=== PATIENT | male | born 1950 | race Caucasian/White ===

== ENCOUNTER 2017-07-05 10:48 | Emergency (ER) | payer MEDICARE ==
[~2017-07-05] VITALS: Ht 177.8 cm; Wt 118.0 kg
[2017-07-05 10:58] VITALS: BP 150/73; PULSE 66; RESP 18; TEMP 97.8
--- NOTE | 2017-07-05 11:25 | RADRPT ---
EXAM DATE/TIME: 07/05/2017 11:16 [facility] COMPARISON: No previous studies available for comparison. INDICATIONS : Chest pain. MEDICAL HISTORY : Hypertension. SURGICAL HISTORY : None. ENCOUNTER: Initial ACUITY: 1 day PAIN SCORE: 3/10 LOCATION: Bilateral chest FINDINGS: A single view of the chest demonstrates the lungs to be symmetrically aerated without evidence of mas s, infiltrate or effusion. The cardiomediastinal contours are unremarkable. Osseous structures are intact. CONCLUSION: No acute disease. Castillo Craig MD FACR on July 05, 2017 at 11:23 Board Certified Radiologist. This report was verified electronically.
[2017-07-05 11:26] VITALS: BP 138/86; PULSE 67; O2SAT 96
[2017-07-05] MEDS ORDERED: OMEP20TA93 PO (11:33)
[2017-07-05] MEDS ORDERED: TELM1TAB PO (11:33)
[2017-07-05] MEDS ORDERED: ASPI-516 CHEW (11:33)
[2017-07-05] MEDS ORDERED: HYDR25TA5 PO (11:33)
[2017-07-05] MEDS ORDERED: SIMV20TA PO (11:33)
[2017-07-05] MEDS ORDERED: SODIUM CHLOR 0.9% 1000 ML INJ 1,000 ML IV ONE (11:36)
[2017-07-05] MEDS ORDERED: SODIUM CHLORIDE 0.9% FLUSH 10 ML FLUSH IVF PRN (11:45)
[2017-07-05] MEDS ORDERED: MECLIZINE HCL 25 MG TAB PO ONE (11:45)
[2017-07-05 11:56] LABS: AUTOMATED NEUTROPHIL # 4.6 TH/MM3 (1.8-7.7); BASOPHIL % 0.4 % (0.0-2.0); EOSINOPHIL # 0.2 TH/MM3 (0-0.4); EOSINOPHIL % 2.7 % (0.0-4.0); HEMATOCRIT 42.2 % (39.0-51.0); LYMPH % 27.2 % (9.0-44.0); LYMPHOCYTE # 2.1 TH/MM3 (1.0-4.8); MEAN CELL VOLUME 87.6 FL (80.0-100.0); MEAN CORPUSCULAR HEMOGLOBIN 31.2 PG (27.0-34.0); MEAN CORPUSCULAR HGB CONC 35.6 % (32.0-36.0); MEAN PLATELET VOLUME 7.9 FL (7.0-11.0); MONO % 10.8 % (0.0-8.0); MONOCYTE # 0.8 TH/MM3 (0-0.9); NEUT % 58.9 % (16.0-70.0); PLATELET COUNT 196 TH/MM3 (150-450); RED BLOOD COUNT 4.81 MIL/MM3 (4.50-5.90); WHITE BLOOD COUNT 7.8 TH/MM3 (4.0-11.0)
[2017-07-05 12:08] LABS: INTERNATIONAL NORMALIZED RATIO 1.1 RATIO; PROTHROMBIN TIME - PATIENT 10.9 SEC (9.8-11.6)
--- NOTE | 2017-07-05 12:16 | PD ---
HPI Chief Complaint: Cardiac Complaint Time Seen by Provider: 11:14 Travel History International Travel<30 days: No Contact w/Intl Traveler<30days: No Traveled to known affect area: No History of Present Illness HPI The patient is a 66-year-old male who presents to the emergency department for dizziness. The patient states he developed dizziness yesterday while he was riding motorcycles with his friends. The patient had no dizziness when sitting, however, with stand and walk and suddenly became dizzy. He felt like he was going to fall over. He states he had difficulty walking in a straight line and sitting down. The patient's symptoms do slightly improved while at rest, he does not feel like he is going to fall over while sitting down , however, soon as he stands up he feels off balance. He denies any room spinning quality to the dizziness. He denies any new tinnitus, does have a history of chronic tinnitus. He denies any acute hearing changes, muffled hearing, or drainage from the EACs. He does complain of mild nausea without any vomiting. He denies any other focal deficits. The patient does have a history of hypertension and hyperlipidemia. He denies any history of tobacco use or diabetes. He denies any previous history of [place], CVA, or TIA. PFSH Past Medical History High Cholesterol: Yes GERD: Yes Hypertension: Yes ?: Not Past Surgical History Narrative Surgical Surgery for sleep apnea, abdominal hernia surgery Social History Alcohol Use: No Tobacco Use: No Substance Use: No Allergies-Medications (Allergen,Severity, Reaction): Coded Allergies: Penicillins (Verified Allergy, Severe, Anaphylaxis, 07/05/17) Reported Meds & Prescriptions Reported Meds & Active Scripts Active Reported Aspirin 81 Mg Chew 81 Mg CHEW DAILY Telmisartan 40 Mg Tab 40 Mg PO DAILY Hydrochlorothiazide 25 Mg Tab 25 Mg PO DAILY Simvastatin 20 Mg Tab 20 Mg PO DAILY Omeprazole 20 Mg Tab 20 Mg PO DAILY Review of Systems Except as stated in HPI: all other systems reviewed are Neg General / Constitutional: No: Fever Eyes: No: Blurred Vision HENT: Positive: Lightheadedness, No: Headaches, Vertigo, Ear Discharge, Earache Cardiovascular: No: Chest Pain or Discomfort, Syncope Respiratory: No: Shortness of Breath Gastrointestinal: Positive: Nausea, No: Vomiting, Abdominal Pain Musculoskeletal: No: Weakness Neurologic: Positive: Dizziness, No: Change in Mentation Physical Exam Narrative GENERAL: Awake, alert, pleasant 66-year-old male who appears his stated age and is in no acute respiratory distress. SKIN: Focused skin assessment warm/dry. HEAD: Atraumatic. Normocephalic. EYES: Pupils equal and round. No nystagmus noted. EOMs are intact. ENT: No nasal bleeding or discharge. Mucous membranes pink and moist. NECK: Trachea midline. No JVD. CARDIOVASCULAR: Regular rate and rhythm. No murmur appreciated. RESPIRATORY: No accessory muscle use. Clear to auscultation. Breath sounds equal bilaterally. GASTROINTESTINAL: Abdomen soft, non-tender, nondistended. Hepatic and splenic margins not palpable. MUSCULOSKELETAL: No obvious deformities. No clubbing. No cyanosis. No edema. NEUROLOGICAL: Awake and alert. No obvious cranial nerve deficits. Motor grossly within normal limits. Normal speech. Nonfocal. Oriented 4. No drift of the upper or lower extremities. Finger to nose is normal. Heel to ortiz is normal. No dysarthria. However, when ambulatory the patient is ataxic, able to ambulate but slightly off balance. PSYCHIATRIC: Appropriate mood and affect; insight and judgment normal. Data Data Last Documented VS Vital Signs Date Time Temp Pulse Resp B/P (MAP) Pulse Ox O2 Delivery O2 Flow Rate FiO2 07/05/17 11:30 96 Room Air 07/05/17 11:26 67 138/86 (103) 07/05/17 10:58 97.8 18 Orders Orders Electrocardiogram (07/05/17 11:10) Complete Blood Count With Diff (07/05/17 11:10) Chest, Single Ap (07/05/17 11:10) Iv Access Insert/Monitor (07/05/17 11:10) Ecg Monitoring (07/05/17 11:10) Oxygen Administration (07/05/17 11:10) Oximetry (07/05/17 11:10) Electrocardiogram (07/05/17 11:36) Comprehensive Metabolic Panel (07/05/17 11:36) Magnesium (Mg) (07/05/17 11:36) Ckmb (Isoenzyme) Profile (07/05/17 11:36) Troponin I (07/05/17 11:36) Act Partial Throm Time (Ptt) (07/05/17 11:36) Prothrombin Time / Inr (Pt) (07/05/17 11:36) Meclizine (Antivert) (07/05/17 11:45) Sodium Chloride 0.9% Flush (Ns Flush) (07/05/17 11:45) Sodium Chlor 0.9% 1000 Ml Inj (Ns 1000 M (07/05/17 11:36) Mri Brain W/O Contrast (07/05/17 ) CKMB (07/05/17 11:40) CKMB% (07/05/17 11:40) Labs Laboratory Tests Test 07/05/17 11:40 White Blood Count 7.8 TH/MM3 Red Blood Count 4.81 MIL/MM3 Hemoglobin 15.0 GM/DL Hematocrit 42.2 % Mean Corpuscular Volume 87.6 FL Mean Corpuscular Hemoglobin 31.2 PG Mean Corpuscular Hemoglobin Concent 35.6 % Red Cell Distribution Width 14.0 % Platelet Count 196 TH/MM3 Mean Platelet Volume 7.9 FL Neutrophils (%) (Auto) 58.9 % Lymphocytes (%) (Auto) 27.2 % Monocytes (%) (Auto) 10.8 % Eosinophils (%) (Auto) 2.7 % Basophils (%) (Auto) 0.4 % Neutrophils # (Auto) 4.6 TH/MM3 Lymphocytes # (Auto) 2.1 TH/MM3 Monocytes # (Auto) 0.8 TH/MM3 Eosinophils # (Auto) 0.2 TH/MM3 Basophils # (Auto) 0.0 TH/MM3 CBC Comment DIFF FINAL Differential Comment Prothrombin Time 10.9 SEC Prothromb Time International Ratio 1.1 RATIO Activated Partial Thromboplast Time 24.5 SEC Blood Urea Nitrogen 14 MG/DL Creatinine 1.05 MG/DL Random Glucose 112 MG/DL Total Protein 7.1 GM/DL Albumin 3.6 GM/DL Calcium Level 8.8 MG/DL Magnesium Level 1.8 MG/DL Alkaline Phosphatase 78 U/L Aspartate Amino Transf (AST/SGOT) 35 U/L Alanine Aminotransferase (ALT/SGPT) 55 U/L Total Bilirubin 0.5 MG/DL Sodium Level 140 MEQ/L Potassium Level 4.1 MEQ/L Chloride Level 105 MEQ/L Carbon Dioxide Level 26.9 MEQ/L Anion Gap 8 MEQ/L Estimat Glomerular Filtration Rate 71 ML/MIN Total Creatine Kinase 161 U/L Creatine Kinase MB 3.0 NG/ML Troponin I LESS THAN 0.02 NG/ML MDM Medical Decision Making Medical Screen Exam Complete: Yes Emergency Medical Condition: Yes Medical Record Reviewed: Yes Interpretation(s) EKG reveals normal sinus rhythm with a rate of 65. Low QRS voltage precordial leads. Last Impressions Chest X-Ray 07/05/17 1110 Signed Impressions: Service Date/Time: Wednesday, July 05, 2017 11:16 - CONCLUSION: No acute disease. Castillo Craig MD FACR Brain MRI 07/05/17 0000 Signed Impressions: Service Date/Time: Wednesday, July 05, 2017 12:28 - CONCLUSION: Moderate periventricular matter changes. Negative for acute ischemic event. There is no evidence for CP angle tumor. There is no mastoid disease. Castillo Craig MD FACR Laboratory Tests Test 07/05/17 11:40 White Blood Count 7.8 TH/MM3 Red Blood Count 4.81 MIL/MM3 Hemoglobin 15.0 GM/DL Hematocrit 42.2 % Mean Corpuscular Volume 87.6 FL Mean Corpuscular Hemoglobin 31.2 PG Mean Corpuscular Hemoglobin Concent 35.6 % Red Cell Distribution Width 14.0 % Platelet Count 196 TH/MM3 Mean Platelet Volume 7.9 FL Neutrophils (%) (Auto) 58.9 % Lymphocytes (%) (Auto) 27.2 % Monocytes (%) (Auto) 10.8 % Eosinophils (%) (Auto) 2.7 % Basophils (%) (Auto) 0.4 % Neutrophils # (Auto) 4.6 TH/MM3 Lymphocytes # (Auto) 2.1 TH/MM3 Monocytes # (Auto) 0.8 TH/MM3 Eosinophils # (Auto) 0.2 TH/MM3 Basophils # (Auto) 0.0 TH/MM3 CBC Comment DIFF FINAL Differential Comment Prothrombin Time 10.9 SEC Prothromb Time International Ratio 1.1 RATIO Activated Partial Thromboplast Time 24.5 SEC Blood Urea Nitrogen 14 MG/DL Creatinine 1.05 MG/DL Random Glucose 112 MG/DL Total Protein 7.1 GM/DL Albumin 3.6 GM/DL Calcium Level 8.8 MG/DL Magnesium Level 1.8 MG/DL Alkaline Phosphatase 78 U/L Aspartate Amino Transf (AST/SGOT) 35 U/L Alanine Aminotransferase (ALT/SGPT) 55 U/L Total Bilirubin 0.5 MG/DL Sodium Level 140 MEQ/L Potassium Level 4.1 MEQ/L Chloride Level 105 MEQ/L Carbon Dioxide Level 26.9 MEQ/L Anion Gap 8 MEQ/L Estimat Glomerular Filtration Rate 71 ML/MIN Total Creatine Kinase 161 U/L Creatine Kinase MB 3.0 NG/ML Troponin I LESS THAN 0.02 NG/ML Differential Diagnosis Differential diagnosis includes CVA, TIA, peripheral vertigo, labyrinthitis, M nire's disease, vestibular cochlear tumor, hyponatremia, hypokalemia, hypocalcemia, intracranial hemorrhage. Narrative Course IV was established, labs are drawn and sent, the patient was placed on cardiac telemetry monitoring and continuous pulse oximetry monitoring. MRI of the brain was ordered to evaluate for possible cerebellar CVA. Labs are unremarkable. Chest x-ray unremarkable. MRI of the brain reveals chronic periventricular white matter changes, no acute ischemic event or tumor noted. I had a discussion with the patient regarding 23 hour observation versus outpatient follow-up. Patient would prefer outpatient follow-up, I believe this is reasonable. I did advise him no driving or operating heavy machinery while dizzy. His symptoms are intermittent, may be in her ear related such as labyrinthitis. He is advised to follow-up with neurology and/or ENT if symptoms persist. He will be provided a copy of his blood work and MRI at discharge. Diagnosis Primary Impression: Dizziness Patient Instructions: General Instructions Additional Instructions: Please provide the patient a copy of his lab results and MRI results at discharge. Follow-up with ENT or neurology if symptoms worsen or progress. Return if symptoms worsen or progress. No driving or operating heavy machinery while symptomatic. Med/Other Pt SpecificInfo: No Change to Meds Disposition: 01 DISCHARGE HOME Condition: Stable Sunny Ramon MD Jul 05, 2017 12:16
[2017-07-05 12:34] LABS: ALBUMIN 3.6 GM/DL (3.4-5.0); ALKALINE PHOSPHATASE 78 U/L (45-117); ALT (GPT) 55 U/L (12-78); AST (GOT) 35 U/L (15-37); BICARBONATE 26.9 MEQ/L (21.0-32.0); CALCIUM 8.8 MG/DL (8.5-10.1); CHLORIDE 105 MEQ/L (98-107); CREATININE 1.05 MG/DL (0.60-1.30); GLOMERULAR FILTRATION RATE 71 ML/MIN (>89); GLUCOSE,RANDOM 112 MG/DL (74-106); MAGNESIUM 1.8 MG/DL (1.5-2.5); SODIUM (NA) 140 MEQ/L (136-145); TOTAL BILIRUBIN ADULT 0.5 MG/DL (0.2-1.0); TOTAL PROTEIN 7.1 GM/DL (6.4-8.2); TROPONIN I LESS THAN 0.02 NG/ML (0.02-0.05)
[2017-07-05 12:37] LABS: BLOOD UREA NITROGEN 14 MG/DL (7-18)
--- NOTE | 2017-07-05 12:46 | RADRPT ---
EXAM DATE/TIME: 07/05/2017 12:28 [facility] COMPARISON: No previous studies available for comparison. INDICATIONS : Dizziness. MEDICAL HISTORY : Hypertension. Hypercholesterolemia. Gastroesophageal reflux disease. SURGICAL HISTORY : Total knee replacement, left. Total knee replacement, right. Bilateral shoulder and sinus surgeries . ENCOUNTER: Initial ACUITY: 1 day PAIN SCORE: 0/10 LOCATION: cranial TECHNIQUE: Multiplanar, multisequence MRI of the brain was performed without contrast. FINDINGS: Moderate periventricular white matter changes are noted. There is no restricted diffusion evident. No extra-axial fluid collections appreciated. Ventricular size is appropriate Midline structures are intact There is no parenchymal hemorrhage. Incidental right maxillary sinus disease is noted. CONCLUSION: Moderate periventricular matter changes. Negative for acute ischemic event. There i s no evidence for CP angle tumor. There is no mastoid disease. Castillo Craig MD FACR on July 05, 2017 at 12:43 Board Certified Radiologist. This report was verified electronically.
[2017-07-05] MEDS ORDERED: KETOROLAC TROMETHAMINE 30 MG/ML (IVP) VIAL IV PUSH ONE (14:15)
--- NOTE | 2017-07-05 14:23 | EKG ---
Date Performed: 07/05/2017 Time Performed: 11:14:08 PTAGE: 66 years EKG: Sinus rhythm LOW QRS VOLTAGE IN PRECORDIAL LEADS LEFT ANTERIOR FASCICULAR BLOCK POSSIBLE ANTERIOR MYOCARDIAL INFA RCTION ABNORMAL ECG NO PREVIOUS TRACING DOCTOR: Marie Vuong Interpretating Date/Time 07/05/2017 14:21:03
== END 2017-07-05 14:29 | disposition home or self-care (01) ==
LOC: NEPC 10:48
DX: R42 Dizziness and giddiness (principal); R11.0 Nausea; I44.4 Left anterior fascicular block; R94.31 Abnormal electrocardiogram [ECG] [EKG]; I10 Essential (primary) hypertension; E78.5 Hyperlipidemia, unspecified; E78.00 Pure hypercholesterolemia, unspecified; K21.9 Gastro-esophageal reflux disease without esophagitis; Z79.82 Long term (current) use of aspirin
CPT/HCPCS: 70551; 71045; 80053; 82550; 82552; 83735; 84484; 85025; 85610; 85730; 93005; 96374; 99285; J1885; J7030

== ENCOUNTER 2017-08-10 10:32 | Emergency (ER) | payer MEDICARE ==
[~2017-08-10 10:32] MED LIST: ASPI-516 CHEW; HYDR25TA5 PO; OMEP20TA93 PO; SIMV20TA PO; TELM1TAB PO
[2017-08-10] MEDS ORDERED: PRED10 PO (10:54)
[2017-08-10] MEDS ORDERED: LEVO500T8 PO (10:54)
--- NOTE | 2017-08-10 11:13 | PD ---
HPI Chief Complaint: Respiratory Symptoms Time Seen by Provider: 11:00 Travel History International Travel<30 days: No Contact w/Intl Traveler<30days: No Traveled to known affect area: No History of Present Illness HPI This is a 66-year-old male who presents to the emergency department with a cough that has been going on 4 3 weeks, constant, moderate severity associated with yellow sputum production. His doctor prescribed him Levaquin and 20 mg of prednisone a day which is completed and he does not feel any better. He has no smoking history. He denies any swelling in his legs. He denies any fevers or chills. PFSH Past Medical History High Cholesterol: Yes GERD: Yes Hypertension: Yes Past Surgical History Other Surgery: Yes (SHOULDER, KNEE, SINUS) Social History Alcohol Use: No Tobacco Use: No Substance Use: No Allergies-Medications (Allergen,Severity, Reaction): Coded Allergies: Penicillins (Verified Allergy, Severe, Anaphylaxis, 08/10/17) Reported Meds & Prescriptions Reported Meds & Active Scripts Active Reported Prednisone 10 Mg Tab 20 Mg PO DAILY Levofloxacin 500 Mg Tablet 500 Mg PO DAILY Aspirin 81 Mg Chew 81 Mg CHEW DAILY Telmisartan 40 Mg Tab 40 Mg PO DAILY Hydrochlorothiazide 25 Mg Tab 25 Mg PO DAILY Simvastatin 20 Mg Tab 20 Mg PO DAILY Omeprazole 20 Mg Tab 20 Mg PO DAILY Review of Systems Except as stated in HPI: all other systems reviewed are Neg Physical Exam Narrative GENERAL:Well appearing, no acute distress SKIN: Focused skin assessment warm and dry. HEAD: Atraumatic. Normocephalic. EYES: Pupils equal and round. No injection or drainage. ENT: Moist mucous membranes NECK: Trachea midline. CARDIOVASCULAR: Regular rate and rhythm. No murmur appreciated. 1+ pitting edema in the bilateral lower extremities. RESPIRATORY: Diffuse wheezing bilaterally. No increased work of breathing. GASTROINTESTINAL: Abdomen soft, non-tender, nondistended. MUSCULOSKELETAL: No obvious deformities. NEUROLOGICAL: Awake and alert. No obvious cranial nerve deficits. Moving all extremities.. PSYCHIATRIC: Appropriate mood and affect; insight and judgment normal. Data Data Orders Orders Chest, Pa & Lat (08/10/17 11:05) Prednisone (Deltasone) (08/10/17 11:15) Albuterol-Ipratropium Neb (Duoneb Neb) (08/10/17 11:15) [facility] Medical Decision Making Medical Screen Exam Complete: Yes Emergency Medical Condition: Yes Interpretation(s) xray: right perihilar infiltrate Differential Diagnosis Pneumonia, bronchitis, COPD exacerbation, congestive heart failure Narrative Course This is a 66-year-old male who presents to the emergency department with cough that has been going on for 3 weeks despite completing Levaquin. He is diffusely wheezing on exam. He is placed on a monitor and an was established. X-ray demonstrates a right perihilar infiltrate. Patient feels improved after 2 DuoNeb's. I think he can be discharged on Cefdinir, azithromycin, continued prednisone and I urged him to follow-up with his primary care physician for repeat x-ray in 2-3 weeks to ensure resolution of the infiltrate. Diagnosis Primary Impression: Pneumonia Qualified Codes: J18.1 - Lobar pneumonia, unspecified organism Patient Instructions: General Instructions Additional Instructions: If you develop severe chest pain, shortness of breath, sweating, lightheadedness , dizziness or difficulty breathing return to the emergency department immediately. Followup with your primary care physician in 2-3 days if your symptoms are not resolved. Med/Other Pt SpecificInfo: Prescription(s) given Scripts Clindamycin (Clindamycin) 300 Mg Cap 600 MG PO Q8H for Infection for 7 Days, #42 CAP 0 Refills Prov: Rebecca Carrington MD 08/10/17 Prednisone (Prednisone) 20 Mg Tab 40 MG PO DAILY, #10 TAB 0 Refills Take 40 mg (2 tablets) daily for 5 days Prov: Rebecca Carrington MD 08/10/17 Disposition: 01 DISCHARGE HOME Condition: Stable Rebecca Carrington MD August 10, 2017 11:13
[2017-08-10] MEDS ORDERED: predniSONE 20 MG TAB PO ONE (11:15)
[2017-08-10] MEDS: RESP: ALBUTEROL 2.5 MG/IPRATROPIUM 0.5 MG NEB (SCH) INH (11:23)
--- NOTE | 2017-08-10 12:06 | RADRPT ---
EXAM DATE/TIME: 08/10/2017 11:27 [facility] COMPARISON: No previous studies available for comparison. INDICATIONS : Cough. MEDICAL HISTORY : Hypertension. SURGICAL HISTORY : None. ENCOUNTER: Initial ACUITY: 2 weeks PAIN SCORE: 3/10 LOCATION: Bilateral chest FINDINGS: PA and lateral views of the chest demonstrate right upper lobe/perihilar infiltrate. Left lung clear. Heart normal size. Osseous structures are intact. CONCLUSION: Right perihilar infiltrate. Treatment and followup to resolution recommended with serial radiographs. Silvio Sena MD on August 10, 2017 at 12:04 Board Certified Radiologist. This report was verified electronically.
[2017-08-10 12:20] VITALS: BP 157/91; PULSE 95; RESP 22; O2SAT 98
[2017-08-10] MEDS ORDERED: PRED20 PO (12:26)
[2017-08-10] MEDS ORDERED: CLIN300C5 PO (12:26)
[2017-08-10] MEDS ORDERED: ALBUAER3 INH (12:27)
[2017-08-10] MEDS ORDERED: PROM6.256 PO (12:27)
== END 2017-08-10 12:38 | disposition home or self-care (01) ==
LOC: NEPE 10:32
DX: J18.1 Lobar pneumonia, unspecified organism (principal); E78.00 Pure hypercholesterolemia, unspecified; I10 Essential (primary) hypertension; K21.9 Gastro-esophageal reflux disease without esophagitis
CPT/HCPCS: 71046; 94640; 94664; 99284; J7512

== ENCOUNTER 2017-09-06 10:52 | Emergency (ER) | payer MEDICARE ==
[~2017-09-06] VITALS: Ht 177.8 cm; Wt 122.5 kg
[~2017-09-06 10:52] MED LIST changes: +ALBUAER3 INH; +CLIN300C5 PO; +LEVO500T8 PO; +PRED10 PO; +PRED20 PO; +PROM6.256 PO
[2017-09-06] MEDS ORDERED: IOHEXOL 300 MG/ML 100 ML BTL (for Rad CT) IVCONTRAST ONE (10:53)
[2017-09-06 11:00] VITALS: BP 142/82; PULSE 90; RESP 22; TEMP 98.2; O2SAT 94
[2017-09-06 11:17] VITALS: BP 138/73; PULSE 87; RESP 22; O2SAT 97
[2017-09-06 11:22] VITALS: O2SAT 99
[2017-09-06] MEDS ORDERED: SODIUM CHLORIDE 0.9% FLUSH 10 ML FLUSH IVF PRN (11:30)
[2017-09-06] MEDS ORDERED: methylPREDNISolone SOD SUCC 125 MG/2 ML VIAL IV PUSH ONE (11:30)
--- NOTE | 2017-09-06 11:37 | PD ---
HPI Chief Complaint: Respiratory Symptoms Time Seen by Provider: 11:16 Travel History International Travel<30 days: No Contact w/Intl Traveler<30days: No Traveled to known affect area: No History of Present Illness HPI Patient is a 66-year-old male presenting to the emergency department for evaluation of shortness of breath and cough. Patient states it started over a month ago. He was diagnosed with pneumonia towards the end of July. He states he has been on Levaquin and then clindamycin followed by another round of Levaquin and then azithromycin which he finished yesterday. Patient states he gets short of breath with exertion, by the afternoon he reports he feels extremely "wiped out". He has difficulty sleeping due to the cough. He denies any fever or chills, nausea, vomiting, abdominal pain or edema. Patient has a history of hypertension and GERD, he was never a smoker. He denies any indigestion. He has no chest pain. Symptom onset was gradual, symptoms are moderate in nature. Patient's symptoms are not alleviated by anything. Patient has been on steroids as well as an inhaler also which are not providing any relief. PFSH Past Medical History High Cholesterol: Yes Diminished Hearing: No GERD: Yes Hypertension: Yes Respiratory: Yes Pneumonia: Yes Influenza Vaccination: No Past Surgical History Other Surgery: Yes (SHOULDER, KNEE, SINUS) Social History Alcohol Use: Yes (couple time a month) Tobacco Use: No Substance Use: No Allergies-Medications (Allergen,Severity, Reaction): Coded Allergies: Penicillins (Verified Allergy, Severe, Anaphylaxis, 08/10/17) Reported Meds & Prescriptions Reported Meds & Active Scripts Active Proair Hfa 8.5 GM Inh (Albuterol Sulfate) 90 Mcg/Act Aer 2 Puff INH Q6H PRN 108 mcg/actuation Reported Prednisone 10 Mg Tab 20 Mg PO DAILY Aspirin 81 Mg Chew 81 Mg CHEW DAILY Telmisartan 40 Mg Tab 40 Mg PO DAILY Hydrochlorothiazide 25 Mg Tab 25 Mg PO DAILY Simvastatin 20 Mg Tab 20 Mg PO DAILY Omeprazole 20 Mg Tab 20 Mg PO DAILY Review of Systems Except as stated in HPI: all other systems reviewed are Neg General / Constitutional: Positive: Other (Fatigue), No: Fever, Chills HENT: Positive: Headaches (With coughing) Cardiovascular: Positive: Dyspnea on exertion, No: Chest Pain or Discomfort, Tachycardia Respiratory: Positive: Cough, Shortness of Breath, Wheezing, Orthopnea, Pleuritic Pain Gastrointestinal: No: Nausea, Abdominal Pain Musculoskeletal: No: Myalgias Neurologic: Positive: Weakness, No: Dizziness, Syncope, Focal Abnormalities Physical Exam Narrative GENERAL: Overweight, well-developed, alert male. Presenting in no acute distress. SKIN: Warm and dry. HEAD: Atraumatic. Normocephalic. EYES: Pupils equal and round. No scleral icterus. No injection or drainage. ENT: No nasal bleeding or discharge. Mucous membranes pink and moist. NECK: Trachea midline. No JVD. CARDIOVASCULAR: Regular rate and rhythm. RESPIRATORY: No accessory muscle use. Expiratory wheezes throughout. GASTROINTESTINAL: Abdomen soft, non-tender, nondistended. Hepatic and splenic margins not palpable. MUSCULOSKELETAL: Extremities without clubbing, cyanosis, or edema. No obvious deformities. NEUROLOGICAL: Awake and alert. No obvious cranial nerve deficits. Motor grossly within normal limits. Five out of 5 muscle strength in the arms and legs. Normal speech. PSYCHIATRIC: Appropriate mood and affect; insight and judgment normal. Data Data Last Documented VS Vital Signs Date Time Temp Pulse Resp B/P (MAP) Pulse Ox O2 Delivery O2 Flow Rate FiO2 09/06/17 14:16 104 22 149/72 (97) 99 Nasal Cannula 3.00 09/06/17 11:00 98.2 Orders Orders Complete Blood Count With Diff (09/06/17 11:19) Comprehensive Metabolic Panel (09/06/17 11:19) Iv Access Insert/Monitor (09/06/17 11:19) Electrocardiogram (09/06/17 11:19) Ecg Monitoring (09/06/17 11:19) Oximetry (09/06/17 11:19) Oxygen Administration (09/06/17 11:19) Chest, Pa & Lat (09/06/17 11:19) Sodium Chloride 0.9% Flush (Ns Flush) (09/06/17 11:30) Magnesium (Mg) (09/06/17 11:26) B-Type Natriuretic Peptide (09/06/17 11:26) Methylprednisolone So Succ Inj (Solumedr (09/06/17 11:30) Ct Pulmonary Angiogram (09/06/17 ) Guaifen-Cod 200-20 Mg/10ml Liq (Robituss (09/06/17 12:30) Arterial Blood Gas (Abg) (09/06/17 ) Iohexol 300 Inj (Rad Ct) (Omnipaque 300 (09/06/17 10:53) Albuterol-Ipratropium Neb (Duoneb Neb) (09/06/17 13:30) Budesonide Neb (Pulmicort Respule Neb) (09/06/17 13:30) Labs Laboratory Tests Test 09/06/17 11:30 09/06/17 13:00 White Blood Count 7.7 TH/MM3 Red Blood Count 4.71 MIL/MM3 Hemoglobin 14.4 GM/DL Hematocrit 41.9 % Mean Corpuscular Volume 89.0 FL Mean Corpuscular Hemoglobin 30.6 PG Mean Corpuscular Hemoglobin Concent 34.4 % Red Cell Distribution Width 14.1 % Platelet Count 222 TH/MM3 Mean Platelet Volume 7.4 FL Neutrophils (%) (Auto) 54.0 % Lymphocytes (%) (Auto) 29.1 % Monocytes (%) (Auto) 9.7 % Eosinophils (%) (Auto) 6.7 % Basophils (%) (Auto) 0.5 % Neutrophils # (Auto) 4.2 TH/MM3 Lymphocytes # (Auto) 2.2 TH/MM3 Monocytes # (Auto) 0.8 TH/MM3 Eosinophils # (Auto) 0.5 TH/MM3 Basophils # (Auto) 0.0 TH/MM3 CBC Comment DIFF FINAL Differential Comment Blood Urea Nitrogen 9 MG/DL Creatinine 0.85 MG/DL Random Glucose 134 MG/DL Total Protein 6.9 GM/DL Albumin 3.7 GM/DL Calcium Level 9.1 MG/DL Alkaline Phosphatase 72 U/L Aspartate Amino Transf (AST/SGOT) 36 U/L Alanine Aminotransferase (ALT/SGPT) 66 U/L Total Bilirubin 0.5 MG/DL Sodium Level 138 MEQ/L Potassium Level 3.7 MEQ/L Chloride Level 103 MEQ/L Carbon Dioxide Level 26.1 MEQ/L Anion Gap 9 MEQ/L Estimat Glomerular Filtration Rate 90 ML/MIN Magnesium Level 1.6 MG/DL B-Type Natriuretic Peptide 15 PG/ML Blood Gas Puncture Site LT RADIAL Blood Gas Patient Temperature 98.6 Blood Gas HCO3 27 mmol/L Blood Gas Base Excess 3.5 mmol/L Blood Gas Oxygen Saturation 95 % Arterial Blood pH 7.45 Arterial Blood Partial Pressure CO2 39 mmHg Arterial Blood Partial Pressure O2 78 mmHG Arterial Blood Oxygen Content 18.2 Vol % Arterial Blood Carboxyhemoglobin 1.3 % Arterial Blood Methemoglobin 0.6 % Blood Gas Hemoglobin 13.6 G/DL Oxygen Delivery Device NASAL CANNULA Blood Gas Liter Flow 3 L/M MDM Medical Decision Making Medical Screen Exam Complete: Yes Emergency Medical Condition: Yes Medical Record Reviewed: Yes Interpretation(s) Vital Signs Date Time Temp Pulse Resp B/P (MAP) Pulse Ox O2 Delivery O2 Flow Rate FiO2 09/06/17 11:22 99 Room Air 09/06/17 11:22 99 Room Air 09/06/17 11:17 87 22 138/73 (94) 97 Room Air 09/06/17 11:14 97 Room Air 09/06/17 11:00 98.2 90 22 142/82 (102) 94 Differential Diagnosis Pneumonia versus pulmonary embolism versus congestive heart failure versus metabolic abnormality versus other Narrative Course Patient is a 66-year-old male presenting for evaluation of shortness of breath and cough persists despite 4 rounds of antibiotics, steroids and inhaler. Patient is tachypneic on arrival, at rest he feels better. Labs and imaging ordered and pending. Patient is on room air currently with oxygen saturation of 95%. DuoNeb and Solu-Medrol ordered. Chest x-ray shows no acute disease. CT pulmonary angiogram is negative for pulmonary embolism, furthermore it is negative for any infectious process. Labs reviewed, no acute findings other than elevated eosinophils in the CBC. Patient reports improvement after the 3 DuoNeb treatments and budesonide. Patient does state that he has a pulmonary function test scheduled for Thursday. His symptoms appear more consistent with a reactive airway disease. Patient will be discharged home with nebulizer treatments and inhaled steroids. He states he takes Claritin on a daily basis, he was encouraged to trial Zyrtec instead or another antihistamine. He was encouraged to follow-up with his primary doctor return to emergency department for any new worsening symptoms. Patient was also seen and evaluated by my attending physician. Patient stable for discharge. Diagnosis Primary Impression: Reactive airway disease with wheezing with acute exacerbation Qualified Codes: J45.901 - Unspecified asthma with (acute) exacerbation Referrals: Primary Care Physician 2 days Patient Instructions: General Instructions, Reactive Airways Disease (ED) Additional Instructions: Take medications as directed Follow-up with your primary doctor Return to emergency department for any new worsening symptoms Change from Claritin to Zyrtec or Jacqueline, use as directed and consistently for best results Med/Other Pt SpecificInfo: Prescription(s) given Scripts Nebulizer/Adult Mask (Nebulizer/Adult Mask) 1 Kit Kit KIT .XX DIRECTED for Breathing Treatment, #1 0 Refills Prov: Neena Snider 09/06/17 Nebulizer (Nebulizer) 1 Mis Mis EA .XX DIRECTED for Breathing Treatment, #1 0 Refills Prov: Neena Snider 09/06/17 Albuterol Neb (Albuterol Neb) 2.5 Mg/3 Ml Neb 2.5 MG NEB Q4HR NEB Y for SHORTNESS OF BREATH, #60 NEBULE 0 Refills Prov: Neena Snider 09/06/17 Budesonide Neb (Budesonide Neb) 0.5 Mg/2 Ml Neb 0.5 MG NEB Q12HR NEB for Breathing Treatment, #60 NEBULE 0 Refills Prov: Neena Snider 09/06/17 Disposition: 01 DISCHARGE HOME Condition: Stable Neena Snider Sep 06, 2017 11:37
[2017-09-06 11:43] LABS: AUTOMATED NEUTROPHIL # 4.2 TH/MM3 (1.8-7.7); BASOPHIL % 0.5 % (0.0-2.0); EOSINOPHIL # 0.5 TH/MM3 (0-0.4); EOSINOPHIL % 6.7 % (0.0-4.0); HEMATOCRIT 41.9 % (39.0-51.0); HEMOGLOBIN 14.4 GM/DL (13.0-17.0); LYMPH % 29.1 % (9.0-44.0); LYMPHOCYTE # 2.2 TH/MM3 (1.0-4.8); MEAN CORPUSCULAR HEMOGLOBIN 30.6 PG (27.0-34.0); MEAN CORPUSCULAR HGB CONC 34.4 % (32.0-36.0); MEAN PLATELET VOLUME 7.4 FL (7.0-11.0); MONO % 9.7 % (0.0-8.0); MONOCYTE # 0.8 TH/MM3 (0-0.9); PLATELET COUNT 222 TH/MM3 (150-450); RED BLOOD COUNT 4.71 MIL/MM3 (4.50-5.90); RED CELL DISTRIBUTION WIDTH 14.1 % (11.6-17.2); WHITE BLOOD COUNT 7.7 TH/MM3 (4.0-11.0)
--- NOTE | 2017-09-06 11:47 | RADRPT ---
EXAM DATE: 09/06/2017 11:35 AM EDT AGE/SEX: 66 years / Male INDICATIONS: Shortness of breath and wheezing. CLINICAL DATA: This is the patient's initial encounter. Patient reports that signs and symptoms have been present for 2 months and indicates a pain score of 0/10. MEDICAL/SURGICAL HISTORY: None. None. COMPARISON: [facility] [place], CHEST PA & LAT, 08/10/2017. . FINDINGS: PA and lateral views of the chest demonstrate a normal-sized cardiac silhouette. There is no effusion , consolidation, or pneumothorax. The bones and soft tissues demonstrate no acute abnormality. CONCLUSION: No acute cardiopulmonary abnormality is identified. Electronically signed by: Anjum Jackson MD 09/06/2017 11:45 AM EDT
[2017-09-06 12:02] LABS: ALBUMIN 3.7 GM/DL (3.4-5.0); ALT (GPT) 66 U/L (12-78); AST (GOT) 36 U/L (15-37); BICARBONATE 26.1 MEQ/L (21.0-32.0); BLOOD UREA NITROGEN 9 MG/DL (7-18); CALCIUM 9.1 MG/DL (8.5-10.1); CHLORIDE 103 MEQ/L (98-107); CREATININE 0.85 MG/DL (0.60-1.30); GLOMERULAR FILTRATION RATE 90 ML/MIN (>89); GLUCOSE,RANDOM 134 MG/DL (74-106); SODIUM (NA) 138 MEQ/L (136-145)
[2017-09-06 12:05] LABS: ALKALINE PHOSPHATASE 72 U/L (45-117); TOTAL BILIRUBIN ADULT 0.5 MG/DL (0.2-1.0); TOTAL PROTEIN 6.9 GM/DL (6.4-8.2)
[2017-09-06] MEDS ORDERED: guaiFENesin/CODEINE SYRUP 200 MG/20 MG/10 ML CUP PO ONE (12:30)
--- NOTE | 2017-09-06 13:08 | RADRPT ---
EXAM DATE: 09/06/2017 1:02 PM EDT AGE/SEX: 66 years / Male INDICATIONS: Short of breath for two months. CLINICAL DATA: This is the patient's initial encounter. Patient reports that signs and symptoms have been present for 2 months and indicates a pain score of 7/10. MEDICAL/SURGICAL HISTORY: Hypertension. None. RADIATION DOSE: 10.83 CTDI (mGy) COMPARISON: No prior exams available for comparison. TECHNIQUE: Volumetric scanning was performed using a multi-row detector CT scanner during bolus infu johnson of 70 ml Omnipaque 350 (iohexol) nonionic water-soluble contrast as a single exam dose. The bossman a was post processed with a variety of visualization algorithms including full volume maximum intensi ty projection and sliding thin slab reformation. Using automated exposure control and adjustment of the mA and/or kV according to patient size, radiation dose was kept as low as reasonably achievable t o obtain optimal diagnostic quality images. FINDINGS: Pulmonary Arteries: No filling defect is identified through the segmental and some of the subsegmenta l level pulmonary arteries. Lungs: No consolidation or pneumothorax is identified. There is mild dependent atelectasis bilateral ly. Mediastinum: The heart and great vessels demonstrate no acute abnormality. No lymphadenopathy is vis ualized. Pleurae: No pleural effusion or pleural thickening. Axillae: No lymphadenopathy. Musculoskeletal: No acute osseous abnormality is identified. There are mild degenerative changes of the thoracic spine. Other: Visualized upper abdominal structures demonstrate no acute abnormality. Liver densities sugge st steatosis. CONCLUSION: 1. No PE is identified. Additionally, no acute abnormality is identified to explain the shortness of breath. 2. Hepatic steatosis. Electronically signed by: Anjum Jackson MD 09/06/2017 1:07 PM EDT
[2017-09-06 13:17] VITALS: O2SAT 97
[2017-09-06] MEDS: RESP: ALBUTEROL 2.5 MG/IPRATROPIUM 0.5 MG NEB (SCH) INH ×2 (13:27→13:28)
[2017-09-06] MEDS ORDERED: RESP: BUDESONIDE 0.5 MG/2 ML NEB NEB ONE (13:30)
[2017-09-06 14:16] VITALS: BP 149/72; PULSE 104; RESP 22; O2SAT 99
[2017-09-06] MEDS ORDERED: ALBU0.08 NEB (14:50)
[2017-09-06] MEDS ORDERED: NEBULIZER/ADULT1 KIT (14:50)
[2017-09-06] MEDS ORDERED: BUDE0.5S NEB (14:50)
[2017-09-06] MEDS ORDERED: NEBULIZER1 MI1 (14:50)
--- NOTE | 2017-09-07 23:17 | EKG ---
Date Performed: 09/06/2017 Time Performed: 11:36:22 PTAGE: 66 years EKG: Sinus rhythm WITH OCCASIONAL VENTRICULAR PREMATURE COMPLEXES MARKED LEFT AXIS DEVIATION LOW QRS VOLTAGE IN PRECOR DIAL LEADS POSSIBLE ANTERIOR MYOCARDIAL INFARCTION ABNORMAL ECG PREVIOUS TRACING : 07/05/2017 11.14 DOCTOR: Ed Olmos Interpretating Date/Time 09/07/2017 23:04:06
== END 2017-09-06 15:14 | disposition home or self-care (01) ==
LOC: NEPE 10:52
DX: J45.901 Unspecified asthma with (acute) exacerbation (principal); R94.31 Abnormal electrocardiogram [ECG] [EKG]; R06.02 Shortness of breath; E78.00 Pure hypercholesterolemia, unspecified; K21.9 Gastro-esophageal reflux disease without esophagitis; I10 Essential (primary) hypertension
CPT/HCPCS: 36600; 71046; 71275; 80053; 82805; 83735; 83880; 85025; 93005; 94640; 94664; 96374; 99285; J2930; J7626; Q9967